=== PATIENT | female | born 1995 | race Two or more races ===

== ENCOUNTER 2021-03-31 17:50 | Emergency (ER) | payer OTHER ==
[~2021-03-31] VITALS: Ht 157.5 cm; Wt 81.6 kg
[~2021-03-31 17:50] MED LIST: MONISTAT 3200 MG/SUP VG; SEPTRA DS TABLE1 TAB PO; VALTREX1000 MG PO
== END 2021-04-01 00:03 | disposition home or self-care (01) ==
LOC: ER 17:50
DX: O23.91 Unspecified genitourinary tract infection in pregnancy, first trimester (principal); Z3A.01 Less than 8 weeks gestation of pregnancy

== ENCOUNTER 2021-04-15 10:20 | Emergency (ER) | payer OTHER ==
[~2021-04-15] VITALS: Ht 157.5 cm; Wt 80.7 kg
[2021-04-15] MEDS ORDERED: PRENA1 CHEW TA1.4 MG (10:37)
== END 2021-04-15 17:08 ==
LOC: ER 10:20
DX: O20.0 Threatened abortion (principal); Z3A.01 Less than 8 weeks gestation of pregnancy

== ENCOUNTER 2021-05-30 16:25 | Outpatient (CLI) | payer OTHER ==
[~2021-05-30 16:25] MED LIST changes: +PRENA1 CHEW TA1.4 MG
== END 2021-05-30 17:55 | disposition home or self-care (01) ==
LOC: PRENATAL 16:25
PROVIDERS: ATTEND Obstetrics & Gynecology Maternal & Fetal Medicine
DX: Z36.89 Encounter for other specified antenatal screening (principal); O36.80X1 Pregnancy with inconclusive fetal viability, fetus 1; Z3A.14 14 weeks gestation of pregnancy

== ENCOUNTER 2021-07-18 08:28 | Outpatient (CLI) | payer OTHER | END 2021-07-18 10:11 | disposition home or self-care (01) | LOC: PRENATAL 08:28 | PROVIDERS: ATTEND Obstetrics & Gynecology Maternal & Fetal Medicine | DX: O35.1XX1 Maternal care for (suspected) chromosomal abnormality in fetus, fetus 1 (principal); O35.3XX0 Maternal care for (suspected) damage to fetus from viral disease in mother, not applicable or unspecified ==

== ENCOUNTER 2021-09-20 11:11 | Outpatient (CLI) | payer OTHER | END 2021-09-20 12:55 | disposition home or self-care (01) | LOC: PRENATAL 11:11 | PROVIDERS: ATTEND Obstetrics & Gynecology Maternal & Fetal Medicine | DX: O24.419 Gestational diabetes mellitus in pregnancy, unspecified control (principal); Z3A.29 29 weeks gestation of pregnancy ==

== ENCOUNTER 2021-09-24 23:11 | Inpatient (IN) | payer OTHER ==
[~2021-09-24] VITALS: Ht 157.5 cm; Wt 1.4 kg
[2021-09-24] MEDS ORDERED: PROBIOTIC250 MG PO (23:19)
[2021-09-24] MEDS ORDERED: VITAMIN D-40010 MCG PO (23:19)
[2021-09-24] MEDS ORDERED: FOLIC ACID20 MG PO (23:19)
== END 2021-10-03 09:35 | disposition home or self-care (01) | DRG 807 ==
LOC: OBS/DEL 23:11 → OB/GYN 09-25 14:23 → LDR 09-25 14:23 → OB/GYN 09-26 10:23
PROVIDERS: ADMIT Obstetrics & Gynecology; ATTEND Obstetrics & Gynecology
PROC: BY4FZZZ Ultrasonography of Third Trimester, Single Fetus (ICD-10-PCS; 2021-09-24)
PROC: 4A1HXCZ Monitoring of Products of Conception, Cardiac Rate, External Approach (ICD-10-PCS; 2021-09-25)
PROC: 10E0XZZ Delivery of Products of Conception, External Approach (ICD-10-PCS; principal; 2021-10-01)
DX: O60.14X0 Preterm labor third trimester with preterm delivery third trimester, not applicable or unspecified (principal); Z37.0 Single live birth; Z20.822 Contact with and (suspected) exposure to COVID-19; Z3A.30 30 weeks gestation of pregnancy